=== PATIENT | male | born 1985 | race Two or more races ===

== ENCOUNTER 2022-08-25 05:30 | Day surgery (SDC) | payer OTHER ==
[2022-08-25] MEDS ORDERED: CEPHALEXIN500 MG PO (15:29)
[2022-08-25] MEDS ORDERED: CILOXAN5 ML OTIC (15:29)
== END 2022-08-25 18:20 | disposition home or self-care (01) ==
LOC: CIR.AMB 05:30
PROVIDERS: ATTEND Otolaryngology Otology & Neurotology
DX: H71.21 Cholesteatoma of mastoid, right ear (principal); H72.11 Attic perforation of tympanic membrane, right ear; H90.11 Conductive hearing loss, unilateral, right ear, with unrestricted hearing on the contralateral side; H61.321 Acquired stenosis of right external ear canal secondary to inflammation and infection; Z20.822 Contact with and (suspected) exposure to COVID-19